=== PATIENT | male | born 1995 | race Caucasian/White ===

== ENCOUNTER 2024-10-15 13:26 | Emergency (ER) | payer OTHER ==
[~2024-10-15] VITALS: Ht 177.8 cm; Wt 84.0 kg
[2024-10-15 13:29] VITALS: O2SAT 100
[2024-10-15 14:32] VITALS: BP 144/87; PULSE 88; RESP 18; TEMP 37.1; O2SAT 99
== END 2024-10-15 14:40 | disposition home or self-care (01) ==
LOC: ER 13:26
DX: R10.9 Unspecified abdominal pain (principal); I10 Essential (primary) hypertension; Z79.899 Other long term (current) drug therapy
CPT/HCPCS: 71045; 74018; 99284